=== PATIENT | female | born 1995 | race African-American/Black ===

== ENCOUNTER 2019-01-22 18:48 | Emergency (ER) | payer OTHER ==
[2019-01-22 19:09] VITALS: BP 112/72; PULSE 99; TEMP 99
--- NOTE | 2019-01-22 20:23 | PDOC ---
History of Present Illness - General Chief Complaint: Pain Stated Complaint: ABD PAIN History Source: Patient Exam Limitations: No Limitations - History of Present Illness Initial Comments: 01/22/19 20:16 Patient is a 23 year old female with no pmhx c/o suprapubic pain x 2 days which has been progressively worsening now 01/24, crampy, was intermittent up until 1 hour ago when it became continous, severe, and crippling. (+) dysuria, acosta when she tries to urinate. No prior symptoms like this. LMP 2weeks ago. Has IUD. Vaginal discharge. Denies fever, chills, nausea, vomiting. PMD: Dr. Jovita Driver-Ray PMHX: as above PSOCHX: occ MJ, occ etoh, neg cig ALL: SULFA -does not remember GENERAL/CONSTITUTIONAL: No fever or chills. No weakness. No weight change. HEAD, EYES, EARS, NOSE AND THROAT: No change in vision. No ear pain or discharge. No sore throat. CARDIOVASCULAR: No chest pain or shortness of breath. RESPIRATORY: No cough, wheezing, or hemoptysis. GASTROINTESTINAL: No nausea, vomiting, diarrhea or constipation. No rectal bleeding. GENITOURINARY: No dysuria, frequency, or change in urination. MUSCULOSKELETAL: No joint or muscle swelling or pain. No neck or back pain. SKIN AND BREASTS: No rash or easy bruising. NEUROLOGIC: No headache, vertigo, loss of consciousness, or loss of sensation. PSYCHIATRIC: No depression or anxiety. ENDOCRINE: No increased thirst. No abnormal weight change. HEMATOLOGIC/LYMPHATIC: No anemia, easy bleeding, or history of blood clots. ALLERGIC/IMMUNOLOGIC: No hives or skin allergy. No latex allergy. GENERAL: The patient is awake, alert, and fully oriented, in mild distress. HEAD: Normal with no signs of trauma. EYES: Pupils equal, round and reactive to light, extraocular movements intact, sclera anicteric, conjunctiva clear. ENT: Ears normal, nares patent, oropharynx clear without exudates. Moist mucous membranes. NECK: Normal range of motion, supple without lymphadenopathy, JVD, or masses. LUNGS: Breath sounds equal, clear to auscultation bilaterally. No wheezes, and no crackles. HEART: Regular rate and rhythm, normal S1 and S2 without murmur, rub. ABDOMEN: Soft, (+) tenderness to the lower abd, normoactive bowel sounds. No guarding, no rebound. No masses. PELVIC: not done patient eloped EXTREMITIES: Normal range of motion, no edema. No clubbing or cyanosis. No cords, erythema, or tenderness. NEUROLOGICAL: Cranial nerves II through XII grossly intact. Normal speech, normal gait. PSYCH: Normal mood, normal affect. SKIN: Warm, Dry, normal turgor, no rashes or lesions noted. Past History - Past Medical History Allergies/Adverse Reactions: Allergies Allergy/AdvReac Type Severity Reaction Status Date / Time Sulfa (Sulfonamide Allergy Verified 01/22/19 19:04 Antibiotics) - Suicide/Smoking/Psychosocial Hx Smoking History: Never smoked Hx Alcohol Use: No Drug/Substance Use Hx: No *Physical Exam - Vital Signs Last Vital Signs Temp Pulse Resp BP Pulse Ox 99 F 99 H 18 112/72 99 01/22/19 19:04 01/22/19 19:04 01/22/19 19:04 01/22/19 19:04 01/22/19 19:04 Medical Decision Making - Medical Decision Making 01/22/19 20:16 Patient is a 23 year old female with no pmhx c/o suprapubic pain x 2 days which has been progressively worsening now 01/24, crampy, was intermittent up until 1 hour ago when it became continous, severe, and crippling. (+) dysuria, acosta when she tries to urinate. No prior symptoms like this. LMP 2weeks ago. Has IUD. Vaginal discharge. Denies fever, chills, nausea, vomiting. Symptoms consitent with pelvic orgin of pain labs, pain meds US reassess. Placed by me carrillo drawn and sent with the patient to a bed. Informed by the nurse that patient did not want to wait for the workup, patient eloped. *DC/Admit/Observation/Transfer Diagnosis at time of Disposition: Pain - Discharge Dispostion Disposition: ELOPED - Referrals - Patient Instructions - Post Discharge Activity
[2019-01-22] MEDS ORDERED: SODIUM CHLORIDE 0.9% 500 ML INFUS.BAG IV ONE (20:28)
[2019-01-22] MEDS ORDERED: KETOROLAC TROMETHAMINE 30 MG/1 ML VIAL IVPUSH ONE (20:28)
[2019-01-22] MEDS ORDERED: KETOROLAC TROMETHAMINE 30 MG/1 ML VIAL ONE (20:56)
== END 2019-01-22 21:05 | disposition left against medical advice (07) ==
LOC: JER 18:48
PROC: 3E0333Z Introduction of Anti-inflammatory into Peripheral Vein, Percutaneous Approach (ICD-10-PCS; principal; 2019-01-22)
DX: R10.30 Lower abdominal pain, unspecified (principal)
CPT/HCPCS: 96374; 99281-25